=== PATIENT | female | born 1945 | race Caucasian/White ===

== ENCOUNTER 2017-08-30 15:34 | Observation (INO) | payer MEDICARE ==
[2017-08-30] VITALS (9 sets, daily range): BP systolic 154–183; BP diastolic 80–92; PULSE 62–86; RESP 16–20; TEMP 96.1–97.9; O2SAT 99–100
[~2017-08-30] VITALS: Ht 157.5 cm; Wt 71.2 kg
[2017-08-30] MEDS ORDERED: ASPI-516 CHEW (15:49)
[2017-08-30] MEDS ORDERED: METO25TA3 PO (15:49)
[2017-08-30] MEDS ORDERED: HYDR25TA5 PO (15:49)
--- NOTE | 2017-08-30 16:27 | PD ---
HPI Chief Complaint: Chest Pain Time Seen by Provider: 16:12 Travel History International Travel<30 days: No Contact w/Intl Traveler<30days: No Traveled to known affect area: No History of Present Illness HPI 71-year-old female complains of chest pain. Patient states that she has intermittent chest pain since yesterday. Patient described the chest pain is taking a pressure substernally without radiation. Patient denies palpitation nausea or diaphoresis. Patient complained of shortness of breath associated with chest pain. patient denies any coughing congestion fever chills. Patient denies history of CAD. Patient has history of hypertension hyperlipidemia. Patient denies history diabetes. Patient is a non-smoker. Patient denies family history of heart disease. Patient denies any chest pain now. Patient took aspirin 81 mg p.o. today. PFSH Past Medical History Cardiovascular Problems: Yes High Cholesterol: Yes Hypertension: Yes Tetanus Vaccination: Unknown Influenza Vaccination: No ?: Not Past Surgical History Hysterectomy: Yes Social History Alcohol Use: Yes (OCCAS) Tobacco Use: No Substance Use: No Allergies-Medications (Allergen,Severity, Reaction): Coded Allergies: No Known Allergies (Unverified , 08/30/17) Reported Meds & Prescriptions Reported Meds & Active Scripts Active Reported Aspirin 81 Mg Chew 81 Mg CHEW DAILY Hydrochlorothiazide 25 Mg Tab 25 Mg PO DAILY Metoprolol Tartrate 25 Mg Tab 25 Mg PO DAILY Review of Systems General / Constitutional: No: Fever Eyes: No: Visual changes HENT: No: Headaches Cardiovascular: Positive: Chest Pain or Discomfort Respiratory: No: Shortness of Breath Gastrointestinal: No: Abdominal Pain Genitourinary: No: Dysuria Musculoskeletal: No: Pain Skin: No Rash Neurologic: No: Weakness Psychiatric: No: Depression Endocrine: No: Polydipsia Hematologic/Lymphatic: No: Easy Bruising Physical Exam Narrative GENERAL: Well-nourished, well-developed patient. SKIN: Focused skin assessment warm/dry. HEAD: Normocephalic. EYES: No scleral icterus. No injection or drainage. NECK: Supple, trachea midline. No JVD or lymphadenopathy. CARDIOVASCULAR: Regular rate and rhythm without murmurs, gallops, or rubs. RESPIRATORY: Breath sounds equal bilaterally. No accessory muscle use. GASTROINTESTINAL: Abdomen soft, non-tender, nondistended. MUSCULOSKELETAL: No cyanosis, or edema. BACK: Nontender without obvious deformity. No CVA tenderness. Neurologic exam normal. Data Data Last Documented VS Vital Signs Date Time Temp Pulse Resp B/P (MAP) Pulse Ox O2 Delivery O2 Flow Rate FiO2 08/30/17 17:58 66 161/83 (109) 100 08/30/17 15:43 Room Air 08/30/17 15:38 97.7 18 Orders Orders Electrocardiogram (08/30/17 16:21) Complete Blood Count With Diff (08/30/17 16:21) Comprehensive Metabolic Panel (08/30/17 16:21) Creatine Kinase (Cpk) (08/30/17 16:21) Troponin I (08/30/17 16:21) Prothrombin Time / Inr (Pt) (08/30/17 16:21) Act Partial Throm Time (Ptt) (08/30/17 16:21) Chest, Single Ap (08/30/17 16:21) Iv Access Insert/Monitor (08/30/17 16:21) Ecg Monitoring (08/30/17 16:21) Oximetry (08/30/17 16:21) Aspirin Chew (Aspirin Chew) (08/31/17 09:00) Aspirin Chew (Aspirin Chew) (08/30/17 16:45) Al-Mag Hy-Si 40-40-4 Mg/Ml Liq (Mag-Al P (08/30/17 17:00) Pantoprazole (Protonix) (08/30/17 17:00) Labs Laboratory Tests Test 08/30/17 16:29 08/30/17 17:18 White Blood Count 7.7 TH/MM3 Red Blood Count 5.49 MIL/MM3 Hemoglobin 14.2 GM/DL Hematocrit 44.3 % Mean Corpuscular Volume 80.7 FL Mean Corpuscular Hemoglobin 25.9 PG Mean Corpuscular Hemoglobin Concent 32.1 % Red Cell Distribution Width 13.9 % Platelet Count 210 TH/MM3 Mean Platelet Volume 9.8 FL Neutrophils (%) (Auto) 63.4 % Lymphocytes (%) (Auto) 26.7 % Monocytes (%) (Auto) 7.5 % Eosinophils (%) (Auto) 1.1 % Basophils (%) (Auto) 1.3 % Neutrophils # (Auto) 4.9 TH/MM3 Lymphocytes # (Auto) 2.0 TH/MM3 Monocytes # (Auto) 0.6 TH/MM3 Eosinophils # (Auto) 0.1 TH/MM3 Basophils # (Auto) 0.1 TH/MM3 CBC Comment DIFF FINAL Differential Comment Prothrombin Time 10.7 SEC Prothromb Time International Ratio 1.1 RATIO Activated Partial Thromboplast Time 26.1 SEC Blood Urea Nitrogen 18 MG/DL Creatinine 0.68 MG/DL Random Glucose 91 MG/DL Total Protein 7.9 GM/DL Albumin 3.5 GM/DL Calcium Level 8.6 MG/DL Alkaline Phosphatase 92 U/L Aspartate Amino Transf (AST/SGOT) 60 U/L Alanine Aminotransferase (ALT/SGPT) 36 U/L Total Bilirubin 0.5 MG/DL Sodium Level 137 MEQ/L Chloride Level 103 MEQ/L Carbon Dioxide Level 27.6 MEQ/L Anion Gap 6 MEQ/L Estimat Glomerular Filtration Rate 86 ML/MIN Total Creatine Kinase 189 U/L Troponin I LESS THAN 0.02 NG/ML MDM Medical Decision Making Medical Screen Exam Complete: Yes Emergency Medical Condition: Yes Interpretation(s) 1627 PM. EKG shows sinus rhythm nonspecific ST-T wave change. Incomplete right bundle branch block. 1654 PM. Last Impressions Chest X-Ray 08/30/17 1621 Signed Impressions: Service Date/Time: August 16:27 - CONCLUSION: No acute disease. Pedro Betts MD CBC within normal limits. 1826 PM. Cardiac enzymes are normal. Differential Diagnosis Differential diagnosis including angina, UT, PE, pneumothorax. Narrative Course 71-year-old female with chest pain. Aspirin 162 mg p.o. given. Maalox 30 cc p.o. Protonix 40 mg p.o. given. Diagnosis Primary Impression: Chest pain Qualified Codes: R07.9 - Chest pain, unspecified Admitting Information Admitting Physician Requests: Observation Preston Perea MD Aug 30, 2017 16:27
--- NOTE | 2017-08-30 16:38 | RADRPT ---
EXAM DATE/TIME: 08/30/2017 16:27 [facility] COMPARISON: No previous studies available for comparison. INDICATIONS : Chest pain and shortness of breath today. MEDICAL HISTORY : Hypertension. SURGICAL HISTORY : None. ENCOUNTER: Initial ACUITY: 1 day PAIN SCORE: 7/10 LOCATION: Bilateral chest FINDINGS: A single view of the chest demonstrates the lungs to be symmetrically aerated without evidence of mas s, infiltrate or effusion. Pleural thickening in the left apex. Chronic interstitial changes are note d bilaterally. The cardiomediastinal contours are unremarkable. Osseous structures are intact. CONCLUSION: No acute disease. Pedro Betts MD on August 30, 2017 at 16:35 Board Certified Radiologist. This report was verified electronically.
[2017-08-30 16:40] LABS: AUTOMATED NEUTROPHIL # 4.9 TH/MM3 (1.8-7.7); BASOPHIL # 0.1 TH/MM3 (0-0.2); BASOPHIL % 1.3 % (0.0-2.0); EOSINOPHIL # 0.1 TH/MM3 (0-0.4); EOSINOPHIL % 1.1 % (0.0-4.0); HEMATOCRIT 44.3 % (35.0-46.0); HEMOGLOBIN 14.2 GM/DL (11.6-15.3); LYMPH % 26.7 % (9.0-44.0); MEAN CELL VOLUME 80.7 FL (80.0-100.0); MEAN CORPUSCULAR HEMOGLOBIN 25.9 PG (27.0-34.0); MEAN CORPUSCULAR HGB CONC 32.1 % (32.0-36.0); MEAN PLATELET VOLUME 9.8 FL (7.0-11.0); MONO % 7.5 % (0.0-8.0); MONOCYTE # 0.6 TH/MM3 (0-0.9); NEUT % 63.4 % (16.0-70.0); PLATELET COUNT 210 TH/MM3 (150-450); RED BLOOD COUNT 5.49 MIL/MM3 (4.00-5.30); RED CELL DISTRIBUTION WIDTH 13.9 % (11.6-17.2); WHITE BLOOD COUNT 7.7 TH/MM3 (4.0-11.0)
[2017-08-30] MEDS ORDERED: ASPIRIN 81 MG CHEW TAB CHEW ONE (16:45)
[2017-08-30] MEDS ORDERED: PANTOPRAZOLE SOD 40 MG DELAYED RELEASE TAB PO ONE (17:00)
[2017-08-30] MEDS ORDERED: ALUMINUM/MAGNESIUM/SIMETH 30 ML CUP PO ONE (17:00)
[2017-08-30 17:41] LABS: CHLORIDE 103 MEQ/L (98-107); SODIUM (NA) 137 MEQ/L (136-145)
[2017-08-30 17:44] LABS: ALBUMIN 3.5 GM/DL (3.4-5.0); BICARBONATE 27.6 MEQ/L (21.0-32.0); CALCIUM 8.6 MG/DL (8.5-10.1); GLUCOSE,RANDOM 91 MG/DL (74-106)
[2017-08-30 17:45] LABS: BLOOD UREA NITROGEN 18 MG/DL (7-18); INTERNATIONAL NORMALIZED RATIO 1.1 RATIO; PROTHROMBIN TIME - PATIENT 10.7 SEC (9.8-11.6)
[2017-08-30 17:47] LABS: ALT (GPT) 36 U/L (10-53)
[2017-08-30 17:48] LABS: AST (GOT) 60 U/L (15-37); CREATININE 0.68 MG/DL (0.50-1.00); GLOMERULAR FILTRATION RATE 86 ML/MIN (>89)
[2017-08-30 17:49] LABS: TOTAL BILIRUBIN ADULT 0.5 MG/DL (0.2-1.0); TOTAL PROTEIN 7.9 GM/DL (6.4-8.2)
[2017-08-30 17:50] LABS: ALKALINE PHOSPHATASE 92 U/L (45-117)
[2017-08-30 17:52] LABS: TROPONIN I LESS THAN 0.02 NG/ML (0.02-0.05)
[2017-08-30] MEDS ORDERED: SODIUM CHLORIDE 0.9% FLUSH 10 ML FLUSH IV FLUSH PRN (18:45)
[2017-08-30] MEDS ORDERED: ACETAMINOPHEN 500 MG CPLT PO PRN (18:45)
[2017-08-30] MEDS ORDERED: ONDANSETRON HCL 4 MG/2 ML VIAL IV PUSH PRN (18:45)
[2017-08-30] MEDS ORDERED: NITROGLYCERIN 0.4 MG SL 25 TABS/BTL SL PRN (18:45)
[2017-08-30 19:36] LABS: TROPONIN I LESS THAN 0.02 NG/ML (0.02-0.05)
[2017-08-30] MEDS: SODIUM CHLORIDE 0.9% FLUSH 10 ML FLUSH IV FLUSH SCH (21:00)
[2017-08-30 23:05] LABS: TROPONIN I LESS THAN 0.02 NG/ML (0.02-0.05)
--- NOTE | 2017-08-30 23:35 | EKG ---
Date Performed: 08/30/2017 Time Performed: 20:24:44 PTAGE: 71 years EKG: Sinus rhythm WITH SINUS ARRHYTHMIA POSSIBLE LEFT ATRIAL ENLARGEMENT MARKED LEFT AXIS DEVIATION POSSIBLE RIGHT VALERIA TRICULAR CONDUCTION DELAY POSSIBLE LEFT VENTRICULAR HYPERTROPHY POSSIBLE SEPTAL MYOCARDIAL INFARCTION ABNORMAL ECG PREVIOUS TRACING : 08/30/2017 19.56 Compared to prior tracing, change in QRS in limb leads may be due to lead placement DOCTOR: Arsenio Colón Interpretating Date/Time 08/30/2017 23:34:49
--- NOTE | 2017-08-30 23:37 | EKG ---
Date Performed: 08/30/2017 Time Performed: 19:56:15 PTAGE: 71 years EKG: ECTOPIC ATRIAL RHYTHM LEFT ATRIAL ENLARGEMENT INCOMPLETE RIGHT BUNDLE BRANCH BLOCK SEPTAL M YOCARDIAL INFARCTION PROBABLE INFERIOR MYOCARDIAL INFARCTION ABNORMAL ECG PREVIOUS TRACING : 08/30/2017 15.41 Compared to prior tracing, change in QRS pattern in limb l sathish may be due to lead placement DOCTOR: Arsenio Colón Interpretating Date/Time 09/04/2017 07:37:27
--- NOTE | 2017-08-30 23:53 | EKG ---
Date Performed: 08/30/2017 Time Performed: 15:41:58 PTAGE: 71 years EKG: Sinus rhythm POSSIBLE LEFT ATRIAL ENLARGEMENT MARKED LEFT AXIS DEVIATION INCOMPLETE RIGHT BUNDLE BRANCH BLOCK POS SIBLE LEFT VENTRICULAR HYPERTROPHY POSSIBLE SEPTAL MYOCARDIAL INFARCTION ABNORMAL ECG INTERPRETATION BASED ON A DEFAULT AGE OF 40 YEARS NO PREVIOUS TRACING DOCTOR: Arsenio Colón Interpretating Date/Time 08/30/2017 23:53:22
[2017-08-31] VITALS: BP 144/72; PULSE 65; RESP 20; TEMP 96; O2SAT 98
[2017-08-31 04:00] VITALS: BP 145/74; PULSE 57; RESP 20; TEMP 97.3; O2SAT 99
[2017-08-31 08:00] VITALS: BP 121/81; PULSE 72; RESP 16; TEMP 96.7; O2SAT 98
--- NOTE | 2017-08-31 08:37 | HHI.HP ---
[facility] Service [facility] Primary Care Physician Rahat Yi M.D. Admission Diagnosis Chest pain Diagnoses: (1) Chest pain Diagnosis: Principal Chief Complaint: Chest pain Travel History International Travel<30 Days: No Contact w/Intl Traveler <30 Da: No Traveled to Known Affected Are: No History of Present Illness This is a 71-year-old female patient with a known medical history of hypertension in hyperlipidemia who presented to the ED with complaints of chest pain. Patient states that for the past couple days she has been having intermittent chest tightness, that is characterized as squeezing in nature, is intermittent and comes and goes randomly at different times a day, patient states the pain is a 10 out of 10 at its worst lasting a few seconds and then goes away. Patient denies any known alleviating factors, states that the pain is worse with activity and walking. Patient states that she took an aspirin yesterday with mild relief of pain. Denies any associated nausea, vomiting, diaphoresis. She does states she gets short of breath with the pain. Patient denies any recent illness including fever, chills, cough, abdominal pain, nausea , vomiting, diarrhea or dysuria. Patient does follow with her primary care doctor, last seen a week ago. At that time patient states that she was told her cholesterol was high, but decided that she wanted to work on lifestyle change and eating better, states she has an appointment with him on the of this month. She states that she was on a statin in the past and affected her liver enzymes and therefore it was stopped. Patient denies any tobacco use. Denies any family history of heart disease. Denies any history of CAD or diabetes. PCP is Dr. Yi. Review of Systems Constitutional: DENIES: Fatigue, Fever, Chills Eyes: DENIES: Blurred vision, Diplopia Respiratory: COMPLAINS OF: Shortness of breath, DENIES: Cough Cardiovascular: COMPLAINS OF: Chest pain, DENIES: Palpitations Gastrointestinal: DENIES: Abdominal pain, Black stools, Bloody stools, Constipation, Diarrhea, Nausea, Vomiting Musculoskeletal: DENIES: Joint pain Psychiatric: DENIES: Anxiety Except as stated in HPI: all other systems reviewed are Neg Past Family Social History Past Medical History Hypertension Hyperlipidemia Past Surgical History Partial hysterectomy Tubal ligation Reported Medications Active Reported Aspirin 81 Mg Chew 81 Mg CHEW DAILY Hydrochlorothiazide 25 Mg Tab 25 Mg PO DAILY Metoprolol Tartrate 25 Mg Tab 25 Mg PO DAILY Allergies: Coded Allergies: No Known Allergies (Unverified , 08/30/17) Active Ordered Medications Current Medications Medications (Trade) Dose Ordered Sig/Jarrod Route Start Time Stop Time Status Last Admin (NS Flush) 2 ml UNSCH PRN IV FLUSH 08/30/17 18:45 (NS Flush) 2 ml BID IV FLUSH 08/30/17 21:00 08/30/17 21:00 (Tylenol) 500 mg Q4H PRN PO 08/30/17 18:45 (Zofran Inj) 4 mg Q6H PRN IV PUSH 08/30/17 18:45 (Nitrostat Sl) 0.4 mg Q5M PRN SL 08/30/17 18:45 Family History Maternal medical history significant for cataracts. Paternal medical history significant for asthma. Denies any familial history of heart disease. Social History Patient denies any Physical Exam Vital Signs Vital Signs Date Time Temp Pulse Resp B/P (MAP) Pulse Ox O2 Delivery O2 Flow Rate FiO2 08/31/17 08:00 96.7 72 16 121/81 (94) 98 08/31/17 04:00 97.3 57 20 145/74 (97) 99 08/31/17 00:00 96.0 65 20 144/72 (96) 98 08/30/17 23:02 97.9 60 18 154/80 (104) 100 08/30/17 22:28 78 16 100 Room Air 08/30/17 22:23 62 18 176/83 (114) 100 Room Air 08/30/17 21:00 64 16 169/92 (117) 99 Room Air 08/30/17 20:00 96.1 63 20 154/82 (106) 99 08/30/17 19:30 73 16 160/88 (112) 99 Room Air 08/30/17 17:58 66 161/83 (109) 100 08/30/17 16:17 66 167/91 (116) 100 08/30/17 15:55 100 08/30/17 15:43 96 Room Air 08/30/17 15:38 97.7 86 18 183/83 (416) 100 Physical Exam GENERAL: Well-developed, well-nourished patient in NAD. SKIN: Warm and dry. No rash. HEAD: Normocephalic. Atraumatic. EYES: Pupils equal and round. No scleral icterus. No injection or drainage. ENT: No nasal bleeding or discharge. Mucous membranes pink and moist. NECK: Supple. Trachea midline. CARDIOVASCULAR: Regular rate and rhythm. S1, S2 noted. No murmur appreciated. Mild tenderness to palpation of midsternal chest. RESPIRATORY: No accessory muscle use. Clear to auscultation. Breath sounds equal bilaterally. GASTROINTESTINAL: Abdomen soft, non-tender, nondistended. Normoactive bowel sounds x4. MUSCULOSKELETAL: No obvious deformities. Extremities without clubbing, cyanosis , or edema. NEUROLOGICAL: Awake and alert. No obvious cranial nerve deficits. Motor grossly within normal limits. 5/5 muscle strength in bilateral upper and lower extremities. Normal speech. PSYCHIATRIC: Appropriate mood and affect; insight and judgment normal. Laboratory Laboratory Tests Test 08/30/17 16:29 08/30/17 17:18 08/30/17 19:00 08/30/17 22:32 White Blood Count 7.7 Red Blood Count 5.49 Hemoglobin 14.2 Hematocrit 44.3 Mean Corpuscular Volume 80.7 Mean Corpuscular Hemoglobin 25.9 Mean Corpuscular Hemoglobin Concent 32.1 Red Cell Distribution Width 13.9 Platelet Count 210 Mean Platelet Volume 9.8 Neutrophils (%) (Auto) 63.4 Lymphocytes (%) (Auto) 26.7 Monocytes (%) (Auto) 7.5 Eosinophils (%) (Auto) 1.1 Basophils (%) (Auto) 1.3 Neutrophils # (Auto) 4.9 Lymphocytes # (Auto) 2.0 Monocytes # (Auto) 0.6 Eosinophils # (Auto) 0.1 Basophils # (Auto) 0.1 CBC Comment DIFF FINAL Differential Comment Prothrombin Time 10.7 Prothromb Time International Ratio 1.1 Activated Partial Thromboplast Time 26.1 Blood Urea Nitrogen 18 Creatinine 0.68 Random Glucose 91 Total Protein 7.9 Albumin 3.5 Calcium Level 8.6 Alkaline Phosphatase 92 Aspartate Amino Transf (AST/SGOT) 60 Alanine Aminotransferase (ALT/SGPT) 36 Total Bilirubin 0.5 Sodium Level 137 Potassium Level 6.1 3.4 Chloride Level 103 Carbon Dioxide Level 27.6 Anion Gap 6 Estimat Glomerular Filtration Rate 86 Total Creatine Kinase 189 81 136 Troponin I LESS THAN 0.02 LESS THAN 0.02 LESS THAN 0.02 Creatine Kinase MB 0.8 Result Diagram: 08/30/17 1629 08/30/17 1900 Imaging Last Impressions Chest X-Ray 08/30/17 1621 Signed Impressions: Service Date/Time: August 16:27 - CONCLUSION: No acute disease. Pedro Betts MD Septic Shock Reassessment Septic shock perfusion: reassessment completed Caprini VTE Risk Assessment Caprini VTE Risk Assessment: Mod/High Risk (score >= 2) Caprini Risk Assessment Model Point Value = 1 Point Value = 2 Point Value = 3 Point Value = 5 Age 41-60 Minor surgery BMI > 25 kg/m2 Swollen legs Varicose veins or History of unexplained or recurrent spontaneous Oral contraceptives or hormone replacement Sepsis (< 1 month) Serious lung disease, including pneumonia (< 1 month) Abnormal pulmonary function Acute myocardial infarction Congestive heart failure (< 1 month) History of inflammatory bowel disease Medical patient at bed rest Age 61-74 Arthroscopic surgery Major open surgery (> 45 min) Laparoscopic surgery (> 45 min) Malignancy Confined to bed (> 72 hours) Immobilizing plaster cast Central venous access Age >= 75 History of VTE Family history of VTE Factor V Leiden Prothrombin [id number] Lupus anticoagulant Anticardiolipin antibodies Elevated serum homocysteine Heparin-induced thrombocytopenia Other congenital or acquired thrombophilia Stroke (< 1 month) Elective arthroplasty Hip, pelvis, or leg fracture Acute spinal cord injury (< 1 month) Prophylaxis Regimen Total Risk Factor Score Risk Level Prophylaxis Regimen 0-1 Low Early ambulation 2 Moderate Order ONE of the following: *Sequential Compression Device (SCD) *Heparin 5000 units SQ BID 3-4 Higher Order ONE of the following medications: *Heparin 5000 units SQ TID *Enoxaparin/Lovenox 40 mg SQ daily (WT < 150 kg, CrCl > 30 mL/min) *Enoxaparin/Lovenox 30 mg SQ daily (WT < 150 kg, CrCl > 10-29 mL/min) *Enoxaparin/Lovenox 30 mg SQ BID (WT < 150 kg, CrCl > 30 mL/min) AND/OR *Sequential Compression Device (SCD) 5 or more Highest Order ONE of the following medications: *Heparin 5000 units SQ TID (Preferred with Epidurals) *Enoxaparin/Lovenox 40 mg SQ daily (WT < 150 kg, CrCl > 30 mL/min) *Enoxaparin/Lovenox 30 mg SQ daily (WT < 150 kg, CrCl > 10-29 mL/min) *Enoxaparin/Lovenox 30 mg SQ BID (WT < 150 kg, CrCl > 30 mL/min) AND *Sequential Compression Device (SCD) Assessment and Plan Problem List: (1) Chest pain ICD Code: R07.9 - Chest pain, unspecified Status: Acute Assessment and Plan This is a 71-year-old female patient with a known medical history of hypertension in hyperlipidemia who presented to the ED with complaints of chest pain. Atypical chest pain rule out ACS versus musculoskeletal cause versus GERD Patient has been admitted to the chest pain center for observation. Serial EKGs and serial troponins have been ordered for ruling out ACS purposes. Troponins are flat. EKG showing nonspecific ST changes. Chest pain has now resolved. Mild tenderness to palpation of chest wall. Patient offered NSAID for possible musculoskeletal cause, patient refusing stating "she will be okay taking the aspirin". Chest x-ray reviewed showing no acute cardiopulmonary disease. Vital signs are stable. Cardiac telemetry overnight was reviewed no arrhythmias noted. Blood pressure elevated on presentation. Blood pressure well controlled. Patient was given Protonix and Maalox 1 for some relief of chest pain. Patient's EKG showing ST changes and right bundle branch block, Dr. Castro , on-call pastrycook for chest pain center, called to update about patient's status and review EKG. A treadmill at this time would not be helpful with the EKG changes seen therefore, patient was offered a chemical stress test to further rule out any possibility of ischemia. Patient does not want any "injections of medicines or chemicals" in her body and is refusing chemical stress test at this time. Patient educated about importance of further ruling out ischemia and necessity of test. Patient is adamant about refusing chemical stress test and follow-up with her PCP. Patient will be discharged to follow up with PCP and possible referral to pastrycook if symptoms persist or worsen. Patient has been educated on importance of returning to the ED if symptoms persist or worsen. Patient is stable at this time and desires to forfeit further stress test that was offered and wants to be discharged. Hypertension, chronic: Patient presented with hypertension, home medications were restarted. Blood pressure stable upon discharge. Continue on discharge. Hyperlipidemia: Patient states that her PCP checked her lipid panel last week and was told she needed to be on a statin. Patient states that she wants to attempt lifestyle changes before she starts on an antilipid agent. Patient encouraged to follow-up with PCP with scheduled appointment. Problem Qualifiers (1) Chest pain: Qualified Codes: R07.9 - Chest pain, unspecified Cecile Quinonez Aug 31, 2017 08:37
[2017-08-31] MEDS: SODIUM CHLORIDE 0.9% FLUSH 10 ML FLUSH IV FLUSH SCH (08:47)
[2017-08-31 08:52] VITALS: RESP 17
[2017-08-31] MEDS ORDERED: METOPROLOL TARTRATE 25 MG TAB PO SCH (09:00)
[2017-08-31] MEDS ORDERED: ASPIRIN 81 MG CHEW TAB CHEW SCH ×2 (09:00)
[2017-08-31] MEDS ORDERED: HYDROCHLOROTHIAZIDE 25 MG TAB PO SCH (09:00)
--- NOTE | 2017-08-31 10:02 | HHI.DCPOC ---
Discharge Care Plan Diagnosis: (1) Chest pain Goals to Promote Your Health * To prevent worsening of your condition and complications * To maintain your health at the optimal level Directions to Meet Your Goals Take your medications as prescribed Follow your dietary instruction Follow activity as directed Keep your appointments as scheduled Take your immunizations and boosters as scheduled If your symptoms worsen call your PCP, if no PCP go to Urgent Care Center or Emergency Room Smoking is Dangerous to Your Health. Avoid second hand smoke Call the 24-hour hour crisis hotline for domestic abuse at Cecile Quinonez Aug 31, 2017 10:02
--- NOTE | 2017-09-01 22:48 | EKG ---
Date Performed: 08/30/2017 Time Performed: 22:47:22 PTAGE: 71 years EKG: SINUS BRADYCARDIA WITH OCCASIONAL ECTOPIC PREMATURE COMPLEXES POSSIBLE LEFT ATRIAL ENLARGEM ENT MARKED LEFT AXIS DEVIATION POSSIBLE RIGHT VENTRICULAR CONDUCTION DELAY POSSIBLE LEFT VENTRICULAR HYPERTROPHY POSSIBLE SEPTAL MYOCARDIAL INFARCTION ABNORMAL ECG WARNING: DATA QUALITY MAY AFFECT INTER PRETATION PREVIOUS TRACING : 08/30/2017 20.24 Since the prior tracing, there has been no significan t change DOCTOR: Arsenio Colón Interpretating Date/Time 09/01/2017 22:46:59
== END 2017-08-31 10:58 | disposition home or self-care (01) ==
LOC: PHED 15:34 → PHEDA 18:37 → PH3B 23:29
PROVIDERS: ADMIT Hospitalist; ATTEND Hospitalist
DX: R07.89 Other chest pain (principal); I10 Essential (primary) hypertension; I45.10 Unspecified right bundle-branch block; E78.5 Hyperlipidemia, unspecified; E78.00 Pure hypercholesterolemia, unspecified; Z79.82 Long term (current) use of aspirin; Z90.710 Acquired absence of both cervix and uterus
CPT/HCPCS: 71045; 80053; 82550; 82552; 84132; 84484; 85025; 85610; 85730; 93005; 99285; G0378